=== PATIENT | male | born 1965 | race Caucasian/White ===

== ENCOUNTER 2017-05-10 15:39 | Emergency (ER) | payer SELFPAY ==
[2016-09-12 22:00] VITALS: BMI 22.8
[~2017-05-10 15:39] MED LIST: AMOXICILLIN500 M1 PO; BIAXIN 500 MG500 MG PO; OMEPRAZOLE20 M1 PO; PEPCID AC20 MG PO
== END 2017-05-10 17:20 | disposition home or self-care (01) ==
LOC: D.ER 15:39
DX: M06.9 Rheumatoid arthritis, unspecified (principal); F17.200 Nicotine dependence, unspecified, uncomplicated

== ENCOUNTER 2017-06-28 13:31 | Emergency (ER) | payer MEDICAID ==
[2016-09-12 22:00] VITALS: BMI 22.8
== END 2017-06-28 19:48 | disposition home or self-care (01) ==
LOC: D.ER 13:31
DX: M13.0 Polyarthritis, unspecified (principal); M79.642 Pain in left hand; M79.641 Pain in right hand

== ENCOUNTER 2017-07-10 15:15 | Emergency (ER) | payer MEDICAID ==
[2016-09-12 22:00] VITALS: BMI 22.8
== END 2017-07-10 17:20 | disposition home or self-care (01) ==
LOC: D.ER 15:15
DX: M79.642 Pain in left hand (principal); M79.641 Pain in right hand; M19.042 Primary osteoarthritis, left hand; M19.041 Primary osteoarthritis, right hand; B19.20 Unspecified viral hepatitis C without hepatic coma; F17.200 Nicotine dependence, unspecified, uncomplicated

== ENCOUNTER 2017-07-23 18:03 | Emergency (ER) | payer MEDICAID ==
[2016-09-12 22:00] VITALS: BMI 22.8
== END 2017-07-23 20:42 | disposition home or self-care (01) ==
LOC: D.ER 18:03
DX: M79.642 Pain in left hand (principal); M79.641 Pain in right hand; M19.042 Primary osteoarthritis, left hand; M19.041 Primary osteoarthritis, right hand; F17.200 Nicotine dependence, unspecified, uncomplicated

== ENCOUNTER 2017-08-05 12:40 | Emergency (ER) | payer MEDICAID ==
[2016-09-12 22:00] VITALS: BMI 22.8
== END 2017-08-05 15:34 | disposition home or self-care (01) ==
LOC: D.ER 12:40
DX: Z76.0 Encounter for issue of repeat prescription (principal); M19.042 Primary osteoarthritis, left hand; M19.041 Primary osteoarthritis, right hand; M06.9 Rheumatoid arthritis, unspecified

== ENCOUNTER 2017-08-27 18:18 | Emergency (ER) | payer MEDICAID ==
[2016-09-12 22:00] VITALS: BMI 22.8
== END 2017-08-27 19:18 | disposition home or self-care (01) ==
LOC: D.ER 18:18
DX: M06.9 Rheumatoid arthritis, unspecified (principal)

== ENCOUNTER 2017-09-17 19:15 | Emergency (ER) | payer MEDICAID ==
[2016-09-12 22:00] VITALS: BMI 22.8
== END 2017-09-17 20:00 | disposition home or self-care (01) ==
LOC: D.ER 19:15
DX: M06.9 Rheumatoid arthritis, unspecified (principal); M79.601 Pain in right arm; F17.200 Nicotine dependence, unspecified, uncomplicated

== ENCOUNTER 2017-10-15 18:29 | Emergency (ER) | payer MEDICAID ==
[2016-09-12 22:00] VITALS: BMI 22.8
== END 2017-10-15 19:30 | disposition home or self-care (01) ==
LOC: D.ER 18:29
DX: M25.521 Pain in right elbow (principal); M19.021 Primary osteoarthritis, right elbow; F17.200 Nicotine dependence, unspecified, uncomplicated

== ENCOUNTER 2018-04-27 00:47 | Emergency (ER) | payer MEDICAID ==
[~2018-04-27] VITALS: Ht 160 cm; Wt 54.5 kg
[2018-04-27 01:02] VITALS: Ht 160 cm; Wt 54.5 kg
[2018-04-27 01:29] LABS: APPEARANCE CLEAR (CLEAR); BILIRUBIN NEGATIVE (NEGATIVE); COLOR YELLOW (YELLOW); GLUCOSE NEGATIVE (NEGATIVE); KETONE NEGATIVE (NEGATIVE); NITRITE NEGATIVE (NEGATIVE); PROTEIN NEGATIVE (NEGATIVE); SPECIFIC GRAVITY 1.015 (1.005-1.020); UROBILINOGEN NORMAL (NORMAL)
[2018-04-27 01:35] LABS: UDS - AMPHET NEGATIVE QUAL (NEGATIVE); UDS - BARB NEGATIVE QUAL (NEGATIVE); UDS - BENZO NEGATIVE QUAL (NEGATIVE); UDS - COCAINE NEGATIVE QUAL (NEGATIVE); UDS - OPIATE NEGATIVE QUAL (NEGATIVE); UDS - PCP NEGATIVE QUAL (NEGATIVE); UDS - THC NEGATIVE QUAL (NEGATIVE)
[2018-04-27 01:49] LABS: HEMATOCRIT 39.3 % (42.0-54.0); HEMOGLOBIN 13.7 g/dL (13.5-17.5); LYMPHOCYTES 45.4 % (15-50); MCH 33.6 pg (26.0-34.0); MCHC 34.9 g/dL (31.0-37.0); MCV 96.3 fL (80.0-100.0); MEAN PLATELET VOLUME 9.3 fL (7.4-10.4); NEUTROPHILS 44.6 % (40-80); RBC 4.08 10x6/uL (4.20-6.10); RDW 12.1 % (11.5-14.5); WBC 4.9 10x3/uL (4.8-10.8)
[2018-04-27 02:02] LABS: PLATELET COUNT 185 10x3/uL (130-400)
[2018-04-27 02:03] LABS: ALBUMIN 3.9 g/dL (3.4-5.0); ALKALINE PHOSPHATASE 120 U/L (46-116); ALT (SGPT) 34 U/L (10-68); CALC OSMOLALITY 281 mosm/kg (275-300); CALCIUM 8.4 mg/dL (8.5-10.1); CARBON DIOXIDE 25.7 mmol/L (21.0-32.0); CHLORIDE - SERUM 105 mmol/L (98-107); CREATININE - SERUM 0.9 mg/dL (0.6-1.3); GLUCOSE 96 mg/dL (74-106); POTASSIUM - SERUM 3.6 mmol/L (3.5-5.1); PROTEIN - SERUM 7.7 g/dL (6.4-8.2); SODIUM 142 mmol/L (136-145); UREA NITROGEN 10 mg/dL (7-18); eGFR NON AFRICAN AMERICAN > 90 mL/min (90-120)
[2018-04-27] MEDS ORDERED: ULTRAM50 MG PO (12:37)
[2018-04-27 13:01] VITALS: BP 147/062
== END 2018-04-27 13:01 | disposition home or self-care (01) ==
LOC: D.ER 00:47
PROVIDERS: Family Medicine
DX: F10.129 Alcohol abuse with intoxication, unspecified (principal); S82.832A Other fracture of upper and lower end of left fibula, initial encounter for closed fracture; Y04.2XXA Assault by strike against or bumped into by another person, initial encounter; Y93.89 Activity, other specified; Y92.89 Other specified places as the place of occurrence of the external cause; R45.850 Homicidal ideations; R45.851 Suicidal ideations; F17.200 Nicotine dependence, unspecified, uncomplicated

== ENCOUNTER 2021-04-28 23:22 | Emergency (ER) | payer OTHER ==
[~2021-04-28] VITALS: Ht 160 cm; Wt 59.1 kg
[~2021-04-28 23:22] MED LIST changes: +ULTRAM50 MG PO
[2021-04-28 23:26] VITALS: BP 131/67; Ht 160 cm; Wt 59.1 kg
[2021-04-28] MEDS ORDERED: AUGMENTIN 875-11 TAB PO (23:33)
== END 2021-04-28 23:56 | disposition home or self-care (01) ==
LOC: D.ER 23:22
DX: S51.842A Puncture wound with foreign body of left forearm, initial encounter (principal)

== ENCOUNTER 2021-05-05 10:09 | Emergency (ER) | payer OTHER ==
[~2021-05-05] VITALS: Ht 160 cm; Wt 59.1 kg
[~2021-05-05 10:09] MED LIST changes: +AUGMENTIN 875-11 TAB PO
[2021-05-05 10:32] VITALS: Ht 160 cm; Wt 59.1 kg
[2021-05-05] MEDS ORDERED: HYDROCODON-ACE1 EAC7 PO (12:22)
[2021-05-05 13:04] VITALS: BP 142/78
== END 2021-05-05 13:19 | disposition home or self-care (01) ==
LOC: D.ER 10:09
DX: S20.211A Contusion of right front wall of thorax, initial encounter (principal); G62.9 Polyneuropathy, unspecified; W19.XXXA Unspecified fall, initial encounter; Y93.9 Activity, unspecified; Y92.9 Unspecified place or not applicable